=== PATIENT | male | born 1945 | race Caucasian/White ===

== ENCOUNTER → 2016-05-18 | Outpatient (CLI) | payer MEDICARE ==
[2016-02-11 10:28] VITALS: BP 134/66
[~2016-05-18] MED LIST: AMIO200T2 PO; ASPI325T4 PO; BRIN10DR OU; CALC625T44 PO; CITA20TA5 PO; CRESTOR20 MG PO; DICL100G7 TP; FLUT1DIS5 IH; FURO40TA4 PO; HYDR-971 PO; LATA2.5D3 OU; LEVO100T5 PO; LEVO500T38 PO; METH-37 PO; METH4TAB2 PO; NIAC10002 PO; OXYC10TA PO; OXYC5TAB PO; PANT40TA5 PO; POTA20TA4 PO; PRED20TA PO; RIVA1PAT3 TD; TAMS0.4C2 PO; TIOT18CA IH
--- NOTE | 2016-05-18 15:27 | RAD ---
Left ankle, 3 views, 05/18/2016: History: Ankle pain and swelling. No fracture or dislocation is identified. Arterial calcifications are present. IMPRESSION: No acute left ankle abnormality is detected.
--- NOTE | 2016-05-18 15:36 | RAD ---
Indication pain and swelling. Chronic. AP oblique and lateral views of the left foot were obtained. Bony mineralization appears normal. An acute bony finding is not seen. Significant degenerative changes are not seen particularly given the patient's age. IMPRESSION: No acute or significant finding seen involving the foot on plain films
== END | disposition home or self-care (01) ==
LOC: DXRAD 12:51
PROVIDERS: ATTEND Family Medicine
DX: M25.572 Pain in left ankle and joints of left foot (principal); M25.475 Effusion, left foot
CPT/HCPCS: 73610; 73630

== ENCOUNTER 2016-05-31 23:20 | Emergency (ER) | payer MEDICARE ==
[~2016-05-31] VITALS: Ht 175.3 cm; Wt 57.2 kg
--- NOTE | 2016-05-31 23:37 | ED.ADGEN ---
Past History Past Medical History: A-Fib, Anxiety, CAD, CHF, COPD, High Cholesterol, Hypothyroid, PR, Pneumonia Past Surgical History: Coronary Bypass Surgery, Hip Replacement, Other Smoking: Cigarettes Alcohol Use: None Drug Use: None Adult General Chief Complaint Chief Complaint " This is my third pace maker.. I was defib yesterday all the time... ..defib tonight.. three times.repeated bursts... . it anin't worth a shit..a usually see Dr. Wise for the cardiac. .. .. I see Paula for the rest of the stuff...".. " Call whoever was elementary instructional coach at ... [facility] something.. .. they told me to go to the ER... " I need to go to ... where Dr. Wise takes care of these problems..s... I feel like shit.. I feel like I am trying to ..." HPI HPI Patient is a 70 year old male who presents with above hx and complaints of CP and his cardiac defibrillator discharging 3 times tonight. Paramedics reports episode of V-Tachy in route to hospital which resulted in a discharge of defib. unit. Pt. Hypotensive on arrival 70's, Hypoxic 80 on 100 NRB. Pt. denies recent hx of fever.. Some white to pinks sputum today. Patient had 3 placement of defibrillator and pacers. Long history of coronary artery disease and COPD. Pt. still smokes. The patient denies any change in meds. No travel. No history of trauma. No specific ill contacts. Normally follows Dr. Mitchell primary and Dr. Wise for cardiology at . Review of Systems Review of Systems Constitutional: Denies fever or chills [] Eyes: Denies change in visual acuity, redness, or eye pain [] HENT: Denies nasal congestion or sore throat [] Respiratory: Complaints of cough and severe shortness of breath [] Cardiovascular: No additional information not addressed in HPI [] GI: Denies abdominal pain, nausea, vomiting, bloody stools or diarrhea [] : Denies dysuria or hematuria [] Musculoskeletal: []Complaints of generalize malaise, arthralgia, and myalgia. Integument: Denies rash or skin lesions [] Neurologic: Denies headache, focal weakness or sensory changes [] Endocrine: Denies polyuria or polydipsia [] Family History Family History Non-contributory Current Medications Current Medications Current Medications Medications (Trade) Dose Ordered Sig/Mario Alberto Start Time Stop Time Status Last Admin Dose Admin Amiodarone HCl 150 mg 150 mg STK-MED ONCE 06/01/16 00:21 06/01/16 11:26 DC Amiodarone HCl/ Dextrose (Cordarone) 103 ml @ 618 mls/hr 1X ONCE 06/01/16 00:00 06/01/16 00:09 DC 06/01/16 00:00 618 MLS/HR Aspirin 324 mg 324 mg 1X ONCE 06/01/16 00:00 06/01/16 00:01 DC 06/01/16 00:00 324 MG Dextrose 100 ml @ As Directed STK-MED ONCE 06/01/16 00:21 06/01/16 11:26 DC Enoxaparin Sodium (Lovenox 60mg Syringe) 60 mg STK-MED ONCE 06/01/16 02:14 06/01/16 11:27 DC Furosemide (Lasix) 40 mg 1X ONCE 06/01/16 02:00 06/01/16 02:01 DC 06/01/16 02:00 40 MG Magnesium Sulfate 50 ml @ 25 mls/hr 1X ONCE 06/01/16 00:00 06/01/16 01:59 DC 06/01/16 00:00 25 MLS/HR Morphine Sulfate (Morphine 2mg Syringe) 2 mg STK-MED ONCE 06/01/16 03:01 06/01/16 11:27 DC Nitroglycerin 0.5 inch 0.5 inch 1X ONCE 06/01/16 00:00 06/01/16 00:01 DC 06/01/16 00:00 0.5 INCH Norepinephrine Bitartrate 4 mg 4 mg STK-MED ONCE 06/01/16 02:01 06/01/16 11:27 DC Norepinephrine Bitartrate/Sodium Chloride (Levophed/Iv Sodium Chloride 0.9% 250ml) 266 ml @ 0 mls/hr CONT PRN 06/01/16 01:30 06/01/16 08:07 DC 06/01/16 02:47 1.9 MLS/HR Potassium Chloride (KCl Oral Soln) 40 meq 1X ONCE 06/01/16 03:00 06/01/16 03:01 DC 06/01/16 02:38 40 MEQ Sodium Chloride (Iv Sodium Chloride 0.9% 250ml) 250 ml @ As Directed STK-MED ONCE 06/01/16 02:01 06/01/16 11:27 DC See Nursing for home meds. Allergies Allergies Allergies Coded Allergies Type Severity Reaction Last Updated Verified No Known Allergies Allergy Unknown 02/10/16 Yes Physical Exam Physical Exam Constitutional: in acute distress, ill and pasty molina appearance. [] HENT: Normocephalic, atraumatic, bilateral external ears normal, oropharynx moist, no oral exudates, nose rhinorrhea. Eyes: PERRLA, EOMI, conjunctiva normal, no discharge. [] Neck: Normal range of motion, no tenderness, supple, no stridor. JVD. Cardiovascular: Irregular Heart rate, irregular rhythm, PMI to Lt. Frequent runs of V-tachy, PVC's. Lungs & Thorax: Bilateral breath sounds equal at apexes with scattered wheezes and crackles on auscultation [] Pacer Rt. Mid line scars. Abdomen: Bowel sounds decreased, soft, no tenderness, no masses, no pulsatile masses. Refuses rectal at this time. Skin: Warm, dry, no erythema, Basal cell surgery on back. Very poor turgor. Back: surgery site tenderness, no CVA tenderness. [] Extremities: generalized tenderness,marked Lt shoulder tenderness, old scar, finger and toe cyanosis, no clubbing, moves ext. on request, trace ankle edema. [] Arthritic changes. Hip scar. Neurologic: Alert and oriented X 3,angry, frustrated , move s ext. on request. no gross sensory function deficits, , no gross focal deficits noted. [] Psychologic: Affect anxious, angry, judgement insight limited, mood depressed. Current Patient Data Vital Signs Vital Signs Date Time Temp Pulse Resp B/P Pulse Ox O2 Delivery O2 Flow Rate FiO2 06/01/16 02:56 62 16 103/56 98 Nasal Cannula 06/01/16 02:55 3 Lab Results Laboratory Tests Test 06/01/16 00:25 White Blood Count 10.9x10^3/uL (4.0-11.0) Red Blood Count 3.67x10^6/uL (4.30-5.70) L Hemoglobin 11.1g/dL (13.0-17.5) L Hematocrit 33.8% (39.0-53.0) L Mean Corpuscular Volume 92fL (79-100) Mean Corpuscular Hemoglobin 30pg (25-35) Mean Corpuscular Hemoglobin Concent 33g/dL (31-37) Red Cell Distribution Width 15.6% (11.5-14.5) H Platelet Count 222x10^3/uL (140-400) Neutrophils (%) (Auto) 79% (31-73) H Lymphocytes (%) (Auto) 6% (24-48) L Monocytes (%) (Auto) 9% (0-9) Eosinophils (%) (Auto) 3% (0-3) Basophils (%) (Auto) 4% (0-3) H Neutrophils # (Auto) 8.6x10^3uL (1.8-7.7) H Lymphocytes # (Auto) 0.6x10^3/uL (1.0-4.8) L Monocytes # (Auto) 0.9x10^3/uL (0.0-1.1) Eosinophils # (Auto) 0.3x10^3/uL (0.0-0.7) Basophils # (Auto) 0.5x10^3/uL (0.0-0.2) H Prothrombin Time 10.8SEC (9.4-11.4) Prothrombin Time INR 1.1 (0.9-1.1) PTT 29SEC (23-33) D-Dimer (Joann) 2.61mg/L (0.00-0.50) H Sodium Level 140mmol/L (136-145) Potassium Level 3.2mmol/L (3.5-5.1) L Chloride Level 103mmol/L (98-107) Carbon Dioxide Level 25mmol/L (21-32) Anion Gap 12 (6-14) Blood Urea Nitrogen 21mg/dL (8-26) Creatinine 1.2mg/dL (0.7-1.3) Estimated GFR (Cockcroft-Gault) 59.5 Glucose Level 102mg/dL (70-99) H Lactic Acid Level 1.3mmol/L (0.4-2.0) Calcium Level 8.5mg/dL (8.5-10.1) Magnesium Level 1.7mg/dL (1.8-2.4) L Total Bilirubin 0.3mg/dL (0.2-1.0) Direct Bilirubin 0.1mg/dL (0.0-0.2) Aspartate Amino Transferase (AST) 16U/L (15-37) Alanine Aminotransferase (ALT) 14U/L (16-63) L Alkaline Phosphatase 117U/L (46-116) H Creatine Kinase 49U/L (39-308) Creatine Kinase MB (Mass) 1.0ng/mL (0.0-3.6) Creatine Kinase MB Relative Index 2.0% (0-4) Troponin I Quantitative < 0.017ng/mL (0-0.055) GR-Rpe-X-Type Natriuretic Peptide 2345pg/mL (0-124) H Total Protein 6.9g/dL (6.4-8.2) Albumin 2.6g/dL (3.4-5.0) L Lipase 82U/L (73-393) Thyroid Stimulating Hormone (TSH) 1.896uIU/mL (0.358-3.740) EKG EKG I interpretation of EKG shows a heart rate of 103 very ill regular rhythm no P waves found. A nonspecific intraventricular block. Anterior septal changes. Repeat EKG at 2:57 shows sinus complex with intra ventricular conduction and block. Rate of 63. (post mag., kcl, amiodarone, lovenox, nitro. and levophed maintenance qtt. ) Radiology/Procedures Radiology/Procedures My interpretation of chest x-ray shows cardiomegaly, ground glass infiltrates, pulmonary edema, rounded infiltrate posterior right upper lobe no acute change. Some left basilar infiltrate versus fibrosis. Old hardware, wires and pacer defib. [] Course & Med Decision Making Course & Med Decision Making Pertinent Labs and Imaging studies reviewed. (See chart for details) Central Line Placement-Risks and benefits discussed- need for line for IV draws and pressure meds- Pt. agreed to procedure. Left subclavian prepped and sterilely draped. 3 mL lidocaine injected. Line passed by Seldinger technique. Return of venous blood all 3 ports. This adequate placement by CT with no pneumothorax. Biopatch. Sutured. Sterile dressing. Discussed presentation, testing and tx plan with Dr. [facility]sey elementary instructional coach cardiology - via [facility] transfer . Pt. is accepted in transfer to . 2:[address] [facility] requested a Phenylephrine drip maintenance in place of Levophed. ( Not currently available in our ED) Bryson Requested MAP at 65 goal. Critical care 90 minutes Final Impression Final Impression 1. Chest Pain 2. Defibrillation -recurrent 3. Hypotension 4. Basal cell carcinoma recent surgery-back 5. COPD 6. Tobacco use 7. CHF 8. Hypomagnesium 9. Hypokalemia 10. Severe Malnutrition- alb. 2.6 11. Anemia 12. Hypoxia 13. Elevated D-dimer Problems: Dragon Disclaimer Dragon Disclaimer This electronic medical record was generated, in whole or in part, using a voice recognition dictation system. SAMUEL ANTONY MD May 31, 2016 23:37
--- NOTE | 2016-05-31 23:55 | ACF ---
Admission Criteria Forms CHEST PAIN Clinical Indications for Admission to Inpatient Care (Place 'X' for any and all applicable criteria): Admission is indicated for chest pain and ANY ONE of the following(1)(2)(3)(4)(5 ): [ ]I. Angina with acute coronary syndrome (Also use Myocardial Infarction or Angina guideline) [ ]II. Hemodynamic instability [ ]III. Angina needing acute intervention as indicated by ALL of the following( 11)(12): [ ]a) Unstable angina is present as indicated by angina that is ANY ONE of the following: [ ]i) New onset [ ]ii) Nocturnal [ ]iii) Prolonged at rest [ ]iv) Progressive [ ]b) Angina warrants acute intervention as indicated by ANY ONE of the following: [ ]i) Recurrent angina (e.g, not responding as previously to treatment) [ ]ii) Angina at rest or with low-level activities despite initial medical therapy [ ]iii) New or presumably new ST-segment depression on ECG [ ]iv) Signs or symptoms of heart failure (eg, dyspnea, pulmonary edema) [ ]v) New or worsening mitral regurgitation [ ]vi) Hemodynamic instability [ ]vii) Dangerous arrhythmia (eg, sustained ventricular tachycardia) [ ]viii) History of percutaneous coronary intervention within 6 months [ ]ix) History of coronary artery bypass graft surgery [ ]x) ELHAM risk score of 2 or greater[A] [ ]xi) History of Diabetes(14) [ ]xii) High-risk cardiac ischemia findings on noninvasive testing (e.g, echocardiogram, treadmill testing, nuclear scan) [ ]xiii) Chronic renal insufficiency (ie, estimated GFR less than 60 mL/min/1.732m) [ ]xiv) Left ventricular ejection fraction less than 40% [ ]IV. Evidence of WI (eg, cardiac biomarkers positive, ST-segment elevation on ECG) also use Myocardial Infarction Criteria Form. [ ]V. Pulmonary edema [ ]. Respiratory distress [ ]VII. Chest pain indicative of serious diagnosis other than coronary artery disease (eg, aortic dissection) [ ]VIII. Contraindications and/or Inappropriate clinical situations for Observational Care in patients with Chest Pain, when ANY ONE of the following is required: [ ]a) Patient with risk factor for pulmonary embolism, acute coronary syndrome and myocardial infarction (18) [ ]b) Patient with Pulmonary embolism require an average LOS of 4.3 days, therefore emergency department observation management is inappropriate 18,23 [ ]c) Painful condition/s in the elderly, have the highest rate of recidivism after emergency department observation management (10.8%) 20,21,22 [ ]d) Elevated cardiac biomarker requires intensive and exhaustive care (19) [ ]IX. General contraindications and/or Inappropriate clinical situations for Observational Care in patients with Chest Pain, when ANY ONE of the following is required: [ ]a) Prediction of prolongation of LOS based on ANY ONE of the following may be considered as a contraindication for observational care 2, 3, 4, 5, 6, 7, 8, 9, 10, 11 [ ]i) Age > 65 yrs. [ ]ii) Patient arriving by ambulance [ ]iii) Patient with high acuity [ ]iv) Patient requiring vital sign monitoring [ ]v) Patient on IV medication [ ]b) Systolic blood pressures 180mmHg 3,12 [ ]c) Patient with altered mental status including delirium and other alteration of consciousness, (3) [ ]d) Patient whose discharge disposition will be to a correction home or rehabilitation home should not be managed in Emergency Department Observation Unit. CMS rule requires 3 days hospital stay before such placement. 3,13 [ ]e) Patient with failure to thrive due to broad array of etiologies 3,16,17 [ ]f) Inability to ambulate 3,14 Extended stay beyond goal length of stay may be needed for (1)(28): [ ]a) Specific condition diagnosed after evaluation (eg, pulmonary embolism, aortic dissection) [ ]b) Unstable angina [ ]c) Continued suspicion of acute coronary syndrome with inability to complete needed cardiac evaluation (eg, patient clinically unable to undergo stress testing) [ ]d) Myocardial infarction (Contents from ANGINA and CHEST PAIN clinical indications for admission to inpatient care have been integrated in this form) The original [employer] content created by [employer] has been revised. The portions of the content which have been revised are identified through the use of italic text or in bold, and [employer] has neither reviewed nor approved the modified material. All other unmodified content is copyright [employer]. Please see references footnoted in the original [employer] edition 2016 TAMAR WHITNEY May 31, 2016 23:55
[2016-06-01] MEDS ORDERED: NITROGLYCERIN OINT 1 GM PACKET. TP ONE
[2016-06-01] MEDS ORDERED: IV NORMAL SALINE 1,000ML 1,000 ML IV SCH
[2016-06-01] MEDS ORDERED: MAGNESIUM SULFATE 2GM 50 ML IV ONE
[2016-06-01] MEDS ORDERED: ASPIRIN 81 MG TAB.CHEW PO ONE
[2016-06-01] MEDS ORDERED: AMIODARONE 150 MG in IV DEXTROSE 5% 100 ML IVP ONE ×2
[2016-06-01] MEDS ORDERED: AMIODARONE 150 MG/3 ML VIAL IVP ONE (00:21)
[2016-06-01] MEDS ORDERED: IV DEXTROSE 5% 100 ML IV ONE (00:21)
[2016-06-01] MEDS ORDERED: MORPHINE SULFATE 2 MG/ML DISP.SYRIN. ONE ×4 (00:34→03:01)
[2016-06-01] MEDS ORDERED: MORPHINE SULFATE 2 MG/ML DISP.SYRIN. IV ONE ×4 (00:34→03:30)
[2016-06-01 01:02] LABS: BASO # 0.5 x10^3/uL (0.0-0.2); BASO % 4 % (0-3); EOS # 0.3 x10^3/uL (0.0-0.7); EOS % 3 % (0-3); HEMATOCRIT 33.8 % (39.0-53.0); HEMOGLOBIN 11.1 g/dL (13.0-17.5); LYMPH # 0.6 x10^3/uL (1.0-4.8); LYMPH % 6 % (24-48); MEAN CORPUSCULAR HEMOGLOBIN 30 pg (25-35); MEAN CORPUSCULAR HGB CONC 33 g/dL (31-37); MEAN CORPUSCULAR VOLUME 92 fL (79-100); MONO # 0.9 x10^3/uL (0.0-1.1); MONO % 9 % (0-9); NEUT # 8.6 x10^3uL (1.8-7.7); NEUT % 79 % (31-73); PLATELET COUNT 222 x10^3/uL (140-400); RED BLOOD COUNT 3.67 x10^6/uL (4.30-5.70); RED CELL DISTRIBUTION WIDTH 15.6 % (11.5-14.5); WHITE BLOOD COUNT 10.9 x10^3/uL (4.0-11.0)
[2016-06-01 01:24] LABS: ALBUMIN 2.6 g/dL (3.4-5.0); CALCIUM 8.5 mg/dL (8.5-10.1); CREATININE 1.2 mg/dL (0.7-1.3); DIRECT BILIRUBIN 0.1 mg/dL (0.0-0.2); GFR 59.5; MAGNESIUM 1.7 mg/dL (1.8-2.4); POTASSIUM 3.2 mmol/L (3.5-5.1); TOTAL BILIRUBIN 0.3 mg/dL (0.2-1.0); TOTAL PROTEIN 6.9 g/dL (6.4-8.2)
[2016-06-01] MEDS ORDERED: NOREPINEPHRINE BITARTRATE 16 MG in IV NORMAL SALINE 250ML 250 ML IV PRN (01:30)
[2016-06-01] MEDS ORDERED: ENOXAPARIN ** NOTE DOSE ** SYRINGE SQ ONE ×2 (01:45→02:14)
[2016-06-01] MEDS ORDERED: FUROSEMIDE 40 MG/4 ML VIAL IVP ONE (02:00)
[2016-06-01] MEDS ORDERED: NOREPINEPHRINE BITARTRATE 4 MG/4 ML VIAL. IV ONE (02:01)
[2016-06-01] MEDS ORDERED: IV NORMAL SALINE 250ML 250 ML ONE (02:01)
[2016-06-01 02:56] VITALS: BP 103/56
--- NOTE | 2016-06-01 02:59 | EKG ---
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
[2016-06-01] MEDS ORDERED: POTASSIUM CHLORIDE 20 MEQ/15 ML ORAL LIQUID. PO ONE (03:00)
--- NOTE | 2016-06-01 06:04 | EKG ---
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
--- NOTE | 2016-06-01 08:18 | RAD ---
Exam: AP portable chest. History: Central line placement. Comparison: 05/31/2016. Findings: External cardiac pacer monitors are seen projecting over the upper chest. Cardiac silhouette appears within normal limits for size. Median sternotomy wires are present. A multi lead AICD by right subclavian approach is seen. Prosthetic cardiac valve is noted. There has been interval placement of a left subclavian central venous catheter with tip projecting at the confluence of the brachiocephalic veins into the superior vena cava. No pneumothorax identified. There is mild accentuation of interstitial markings, especially at the left lung base, similar to previous study, favored to represent mild fibrotic change. No overt failure is identified. Chronic distal right clavicular fracture is again seen. Impression: 1. No acute cardiopulmonary process. 2. Left subclavian central venous catheter tip projects at the confluence] of the brachiocephalic veins into superior vena cava.
--- NOTE | 2016-06-01 08:23 | RAD ---
Exam: AP portable chest. History: Chest pain, shortness of air. Comparison: 12/26/2015. Findings: External cardiac pacer monitors project over the upper chest. Cardiac silhouette appears within normal limits for size given positioning and rotation. A multilead AICD by right subclavian approach is seen. Median sternotomy wires are present. Mild accentuation of interstitial markings, especially at the left lung base, is similar to previous study and is favored to represent fibrotic change. No overt failure is identified. No focal consolidation is seen. No pneumothorax or pleural effusion is appreciated. Chronic distal right clavicular fracture is noted. Impression: 1. No acute cardiopulmonary process.
--- NOTE | 2016-06-01 17:14 | EKG ---
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
== END 2016-06-01 03:00 | disposition short-term general hospital (02) ==
LOC: ER 23:20
DX: R07.9 Chest pain, unspecified (principal); D64.9 Anemia, unspecified; E83.42 Hypomagnesemia; E87.6 Hypokalemia; I95.9 Hypotension, unspecified; J44.9 Chronic obstructive pulmonary disease, unspecified; I50.9 Heart failure, unspecified; E43 Unspecified severe protein-calorie malnutrition; R09.02 Hypoxemia; R79.1 Abnormal coagulation profile; E03.9 Hypothyroidism, unspecified; F41.9 Anxiety disorder, unspecified; I25.10 Atherosclerotic heart disease of native coronary artery without angina pectoris; I48.91 Unspecified atrial fibrillation; E78.00 Pure hypercholesterolemia, unspecified; I25.2 Old myocardial infarction; F17.210 Nicotine dependence, cigarettes, uncomplicated; Z95.810 Presence of automatic (implantable) cardiac defibrillator; Z68.1 Body mass index [BMI] 19.9 or less, adult; Z95.1 Presence of aortocoronary bypass graft
CPT/HCPCS: 36415; 36556; 71010; 80048; 80076; 82553; 83605; 83690; 83735; 83880; 84443; 84484; 85027; 85379; 85610; 85730; 87040; 93005; 96365; 96366; 96367; 96372; 96375; 96376; 99291; 99292; J0282; J1650; J1940; J2270; J3475; J7050; J7030